=== PATIENT | male | born 1935 | race African-American/Black ===

== ENCOUNTER 2019-06-06 05:58 | Day surgery (SDC) | payer MEDICARE ==
--- NOTE | 2019-05-11 08:44 | HP ---
AMENDED REPORT NOW INCLUDES DESIGNATED COSIGNER - ESIGNED BEFORE ADJUSTMENT CC: Dr. Bazan; Dr. Bronson * PREOPERATIVE HISTORY AND PHYSICAL: DATE OF ADMISSION/SURGERY: 05/12/19 DATE OF PREOPERATIVE HISTORY AND PHYSICAL EXAMINATION: 05/10/19 This patient is scheduled for same-day surgery admission by Dr. Bazan on 05/12/19. ATTENDING SURGEON: Dr. Keanu Bazan * (dictated by Madalyn Vallejo NP). CHIEF COMPLAINT: Abdominal hernia. HISTORY OF PRESENT ILLNESS: The patient is an 83-year-old male with a history of a small bulge in the epigastric region for over 1 year. More recently, he has noted bulging that is "hen egg" sized. It is nontender and he can reduce it , but when he does he experiences some nausea. He denies any change in urinary or bowel habits. He denies any signs or symptoms to suggest incarceration or strangulation. He had a CAT scan of the abdomen and pelvis, which was reviewed by Dr. Bazan and was consistent a supraumbilical hernia with a 2 cm defect containing fat. Dr. Bazan has examined the patient and discussed the findings with him and has recommended robotic ventral hernia repair with mesh as a same-day surgery procedure under general anesthesia. Dr. Bazan discussed the nature of the surgical procedure, the rationale for the procedure , the relevant risks and benefits, and today, I have reviewed the expected postoperative care and recovery. The patient has had a chance to ask questions and stated that he understands the information and is satisfied with the answers given to his questions. He will sign surgical consent on the day of surgery. PAST MEDICAL HISTORY: Hypertension; deep vein thrombosis, left lower extremity , in 2004; gastroesophageal reflux disease; degenerative arthritis of the knees ; benign intentional tremor; thalassemia minor; and chronic shoulder and back pain. PAST SURGICAL HISTORY: Total knee replacement on the left 2004, right total knee replacement 2008, and then redo of the left total knee replacement 2014. MEDICATIONS: 1. Vitamin B12 1000 mcg p.o. daily. 2. Hydrocodone/acetaminophen 5/325 mg 1 tablet every 4 to 6 hours as needed for pain and he typically takes 1 daily. 3. Fish oil 1200 mg p.o. daily. 4. Propranolol 20 mg p.o. b.i.d. 5. Diclofenac 75 mg 1 tablet b.i.d. p.r.n. shoulder pain. ALLERGIES: WARFARIN caused dizziness. FAMILY HISTORY: Negative for bleeding tendencies, blood clots, or anesthesia complications. SOCIAL HISTORY: He is . He is a retired ayan. He is a former smoker. He denies the use of alcohol. He remains active. REVIEW OF SYSTEMS: Constitutional: No fevers, chills, excessive fatigue, or weight loss. General: No previous anesthesia complications. He has a history of a DVT, left lower extremity, 2004; no history of pulmonary embolism. He states that he received blood transfusions when he had total knee replacements. He denies any bleeding tendencies. Dr. Josias Bronson, who is his primary care provider, describes the thalassemia minor as stable. Endocrine: No diabetes or thyroid disease. Cardiovascular: No anginal chest pain or pressure. No history of myocardial infarction. He is treated for hypertension. Respiratory : No chronic cough or dyspnea on exertion. Gastrointestinal: As described in history of present illness. Genitourinary: No dysuria. Musculoskeletal: Chronic back and shoulder pain. Neurologic: No areas of focal numbness or weakness. No headaches or blurred vision. Psychiatric: No reported anxiety, depression, or insomnia. PHYSICAL EXAMINATION GENERAL SURVEY: The patient is an 83-year-old male, well developed, well nourished, in no acute distress. VITAL SIGNS: Height 70 inches, weight 222 pounds, body mass index 31.9. Blood pressure 122/70, pulse 84 and regular, respiratory rate 18, temperature 97.6 tympanic. HEENT: Benign. NECK: Supple. No cervical lymphadenopathy. LUNGS: Breath sounds bilaterally clear and equal. HEART: Regular rate and rhythm. No murmurs or rubs appreciated. ABDOMEN: Obese, active bowel sounds, soft, nondistended. Reducible supraumbilical hernia, nontender. No other obvious masses or organomegaly. BACK: No CVA tenderness. GENITALIA: Deferred. RECTAL: Deferred. EXTREMITIES: Warm without edema or skin ulceration. NEUROLOGIC: Alert and oriented x3. Steady gait. SKIN: Warm, dry, intact. IMPRESSION: Ventral hernia. PLAN: Same-day surgery admission to Dr. Bazan' service on 05/12/19, for robotic ventral hernia repair with mesh. MADALYN VALLEJO, EYEGLASS ASSEMBLER [id number]/[facility] #: [id number] [facility]PTON HOSPITALBalbir
[~2019-06-06 05:58] MED LIST: Buffered Lidocaine 1% SYRIN* 1 ML/SYRINGE INTRADERM ONE; Lactated Ringers 1000 ML Bag* 1,000 ML IV SCH
[2019-06-06] MEDS ORDERED: Lactated Ringers 1000 ML Bag* 1,000 ML IV SCH (06:00)
[2019-06-06] MEDS ORDERED: ceFAZolin 2 GM in NS PREMIX(*) 2 GM/100 ML BAG IVPB ONE (06:17)
[2019-06-06] MEDS ORDERED: Buffered Lidocaine 1% SYRIN* 1 ML/SYRINGE INTRADERM ONE (06:17)
[2019-06-06] MEDS ORDERED: Succinylcholine* 20 MG/ML 10 ML VIAL ONE (06:23)
[2019-06-06] MEDS ORDERED: fentaNYL* 50 MCG/ML 2 ML VIAL (100 MCG VIAL) ONE (06:23)
[2019-06-06] MEDS ORDERED: Ketorolac INJ* 30 MG/ML 1 ML VIAL ONE (06:23)
[2019-06-06] MEDS ORDERED: Propofol* 10 MG/ML 20 ML BTL ONE (06:23)
[2019-06-06] MEDS ORDERED: Ondansetron INJ* 2 MG/ML VIAL ONE (06:23)
[2019-06-06] MEDS ORDERED: Rocuronium* 10 MG/ML VIAL ONE (06:23)
[2019-06-06] MEDS ORDERED: Dexamethasone IV* 4 MG/ML 1 ML (4 MG) ONE (06:23)
[2019-06-06] MEDS ORDERED: EPHEDrine (Pressors)* 50 MG/ML VIAL ONE (06:23)
[2019-06-06] MEDS ORDERED: Lidocaine 2% PF * 5 ML VIAL ONE (06:26)
[2019-06-06] MEDS ORDERED: Sterile Water for Inj* 10 ML ONE (06:35)
[2019-06-06] MEDS ORDERED: Sugammadex * 200 MG/2 ML VIAL IV PUSH ONE (06:35)
[2019-06-06] MEDS ORDERED: Bupivacaine 0.5% W/EPI SDV* 30 ML VIAL ONE (06:52)
[2019-06-06] MEDS ORDERED: Naloxone* 0.4 MG/ML 1 ML VIAL IV PRN (07:00)
[2019-06-06] MEDS ORDERED: Acetaminophen IV 1GM/100ML * 100 ML ONE (08:22)
--- NOTE | 2019-06-06 09:19 | BRIEFOPN ---
Brief Operative/Procedure Note - Operation Details Pre-Op Diagnosis: Ventral hernia Post-Op Diagnosis: Ventral hernia Procedures: Robotic Ventral hernia repair with mesh Surgeon(s)/Proceduralists: Dr. Bazan. Assist: Frantz Anesthesia: GETRigo Estimated Blood Loss: <20cc Findings: As above Specimen(s)/Culture(s) Description: None Complications: None
[2019-06-06 10:08] VITALS: BP 145/92
--- NOTE | 2019-06-08 22:09 | OP ---
CC: Josias Bronson MD* OPERATIVE REPORT: DATE OF OPERATION: 06/06/19 - SDS DATE OF : 39 SURGEON: Dr. Bazan. LAPEL BASTER: Va Locke NP ANESTHESIA: General endotracheal. PRE-OP DIAGNOSIS: Ventral incisional hernia. POST-OP DIAGNOSIS: Ventral incisional hernia. OPERATIVE PROCEDURE: Robotic ventral hernia repair with mesh. ESTIMATED BLOOD LOSS: Less than 20 mL. IV FLUIDS: Crystalloid. SPECIMEN: None. DRAINS: None. COMPLICATIONS: None. COUNTS: Instrument, needle and sponge counts correct. DESCRIPTION OF PROCEDURE: The patient was brought to the operating room and placed on the table in supine position. Sequential compression devices were placed on both lower extremities. General anesthesia was administered. The abdomen was prepped and draped in usual sterile fashion and the time-out was performed. Local anesthetic was infiltrated through the skin and soft tissue prior to making each incision. Entry to the abdomen was through a left upper quadrant incision accommodating an 8 mm optical trocar. After accessing the peritoneal cavity, carbon dioxide was insufflated to a pressure of 15 mmHg. Under direct visualization, 8 mm trocars were placed in the left lower quadrant and left abdomen laterally. The inspection revealed a supraumbilical ventral hernia. The robot was docked and a preperitoneal dissection was created by scoring the peritoneum to the left side of the hernia defect. The hernia sac and associated fat was reduced and preperitoneal space was created to accommodate a mesh approximately 6 x 5 cm oval. The defect appeared to be 2 cm. The defect was closed in a transverse fashion using the Stratafix 0 PDS suture running it to and fro. A polypropylene mesh patch 5 x 6 cm oval was fashioned from a sheet of polypropylene mesh and it was placed into the preperitoneal space positioned to cover the defect. A 3-0 V-Loc 90 suture was used to secure the mesh circumferentially and then the peritoneal flap was closed with a V-Loc 90 suture running. The instrumentation, carbon dioxide, and ports were removed under visualization. Skin incisions were closed with 4-0 Monocryl in subcuticular fashion and DermaFlex applied. The patient tolerated this procedure well, was extubated and transferred to the recovery room stable. [id number]/[facility] #: [id number] [facility]
== END 2019-06-06 10:47 | disposition home or self-care (01) ==
LOC: OR 05:58
PROVIDERS: ATTEND Surgery
DX: K43.9 Ventral hernia without obstruction or gangrene (principal); I10 Essential (primary) hypertension; Z86.718 Personal history of other venous thrombosis and embolism; K21.9 Gastro-esophageal reflux disease without esophagitis; M17.0 Bilateral primary osteoarthritis of knee; Z96.653 Presence of artificial knee joint, bilateral; G25.0 Essential tremor
CPT/HCPCS: 49652; S2900; C1781; J0330; J0690; J1100; J1885; J2405; J2704; J3010